=== PATIENT | female | born 1990 ===

== ENCOUNTER 2017-08-15 20:44 | Emergency (ER) | payer OTHER ==
[~2017-08-15] VITALS: Ht 167.6 cm; Wt 59.0 kg
[2017-08-15 21:33] VITALS: BP 117/76; PULSE 75; RESP 18; TEMP 98.6; O2SAT 99
[2017-08-15 22:00] VITALS: RESP 18; O2SAT 98
[2017-08-15] MEDS ORDERED: MORPHINE SULFATE 2 MG/ML SYRINGE IV PUSH ONE (22:00)
[2017-08-15] MEDS ORDERED: SODIUM CHLORIDE 0.9% FLUSH 10 ML FLUSH IV FLUSH PRN (22:00)
--- NOTE | 2017-08-15 22:00 | PD ---
HPI Chief Complaint: Injury Time Seen by Provider: 21:47 Travel History International Travel<30 days: No Contact w/Intl Traveler<30days: No Traveled to known affect area: No History of Present Illness HPI 27-year-old female here for evaluation of worsening left leg, ankle, and foot pain and swelling after injuring the area on 08/03/17, approximately 12 days ago. The patient reports that she was walking by a barn when a sofie of wind blew a barn door onto her, mainly injuring her left foot, ankle, and leg as well as her left lateral chest. She reports that she was evaluated at [facility] at that time and had x-rays of her left ribs, left tib-fib, and left ankle , and was told that there are no fractures. She reports that the swelling was almost instant, and the pain and swelling has been constant, worsening, throbbing, currently 8 out of 10, worse with movements and palpation. She reports feeling intermittent subjective fevers. No history of IVDU. She has been taking ibuprofen with only mild relief of pain. [facility] Past Medical History Medical History: Denies Significant Hx Diminished Hearing: No Tetanus Vaccination: Unknown Influenza Vaccination: No ?: Unknown LMP: 07/28/17 Past Surgical History Surgical History: No Previous Surgery Social History Alcohol Use: No Tobacco Use: No Substance Use: No Allergies-Medications (Allergen,Severity, Reaction): Coded Allergies: No Known Allergies (Verified Allergy, Unknown, 08/15/17) Reported Meds & Prescriptions Reported Meds & Active Scripts Active No Active Prescriptions or Reported Medications Review of Systems Except as stated in HPI: all other systems reviewed are Neg Physical Exam Narrative GENERAL: Well-developed, well-nourished, awake, alert, no apparent distress. SKIN: Left lateral/distal leg with healing abrasion/scrapes with surrounding warmth and erythema as well as ecchymosis. Area of ecchymosis to left lateral/ inferior chest wall. HEAD: Atraumatic. Normocephalic. EYES: Pupils equal and round. No scleral icterus. No injection or drainage. ENT: Mucous membranes pink and moist. NECK: Trachea midline. No JVD. CARDIOVASCULAR: Regular rate and rhythm. Bilateral dorsalis pedis pulses are brisk and equal. RESPIRATORY: No accessory muscle use. Clear to auscultation. Breath sounds equal bilaterally. GASTROINTESTINAL: Abdomen soft, non-tender, nondistended. MUSCULOSKELETAL: Skin exam as above. Significant edema to left foot, ankle, and leg with diffuse tenderness. No fluctuance or induration. No crepitus. All compartments in the left lower extremity are supple. NEUROLOGICAL: Awake and alert. No obvious cranial nerve deficits. Motor grossly within normal limits. Normal speech. PSYCHIATRIC: Appropriate mood and affect; insight and judgment normal. Data Data Last Documented VS Vital Signs Date Time Temp Pulse Resp B/P (MAP) Pulse Ox O2 Delivery O2 Flow Rate FiO2 08/15/17 22:00 18 98 Room Air 08/15/17 21:33 98.6 75 117/76 (90) Orders Orders Beta Hcg (Quant/Titer) (08/15/17 21:54) Complete Blood Count With Diff (08/15/17 21:54) Comprehensive Metabolic Panel (08/15/17 21:54) Prothrombin Time / Inr (Pt) (08/15/17 21:54) Act Partial Throm Time (Ptt) (08/15/17 21:54) Iv Access Insert/Monitor (08/15/17 21:54) Ecg Monitoring (08/15/17 21:54) Oximetry (08/15/17 21:54) Sodium Chloride 0.9% Flush (Ns Flush) (08/15/17 22:00) Blood Culture (08/15/17 21:54) Westergren Sedimentation Rate (08/15/17 21:54) C-Reactive Protein (Crp) (08/15/17 21:54) Tibia/Fibula (Ap/Lat) (08/15/17 ) Foot, Complete (Rpz1its) (08/15/17 ) Morphine Inj (Morphine Inj) (08/15/17 22:00) Mri Lower Leg W/Wo Contrast (08/15/17 ) Labs Laboratory Tests Test 08/15/17 22:00 White Blood Count 8.6 TH/MM3 Red Blood Count 4.13 MIL/MM3 Hemoglobin 12.4 GM/DL Hematocrit 37.5 % Mean Corpuscular Volume 90.9 FL Mean Corpuscular Hemoglobin 30.1 PG Mean Corpuscular Hemoglobin Concent 33.1 % Red Cell Distribution Width 13.2 % Platelet Count 222 TH/MM3 Mean Platelet Volume 8.3 FL Neutrophils (%) (Auto) 66.8 % Lymphocytes (%) (Auto) 21.5 % Monocytes (%) (Auto) 8.5 % Eosinophils (%) (Auto) 2.5 % Basophils (%) (Auto) 0.7 % Neutrophils # (Auto) 5.8 TH/MM3 Lymphocytes # (Auto) 1.8 TH/MM3 Monocytes # (Auto) 0.7 TH/MM3 Eosinophils # (Auto) 0.2 TH/MM3 Basophils # (Auto) 0.1 TH/MM3 CBC Comment DIFF FINAL Differential Comment Erythrocyte Sedimentation Rate 14 mm/hr Prothrombin Time 9.8 SEC Prothromb Time International Ratio 1.0 RATIO Activated Partial Thromboplast Time 26.1 SEC Blood Urea Nitrogen 8 MG/DL Creatinine 0.52 MG/DL Random Glucose 87 MG/DL Total Protein 7.9 GM/DL Albumin 3.7 GM/DL Calcium Level 9.0 MG/DL Alkaline Phosphatase 75 U/L Aspartate Amino Transf (AST/SGOT) 16 U/L Alanine Aminotransferase (ALT/SGPT) 17 U/L Total Bilirubin 0.4 MG/DL Sodium Level 139 MEQ/L Potassium Level 3.9 MEQ/L Chloride Level 107 MEQ/L Carbon Dioxide Level 27.6 MEQ/L Anion Gap 4 MEQ/L Estimat Glomerular Filtration Rate 143 ML/MIN C-Reactive Protein 1.70 MG/DL Human Chorionic Gonadotropin, Quant LESS THAN 1 MIU/ML MDM Medical Decision Making Medical Screen Exam Complete: Yes Emergency Medical Condition: Yes Differential Diagnosis Left foot/ankle/tib-fib fracture, osteomyelitis, cellulitis, severe left ankle sprain/tendon injury Narrative Course Initial vital signs show heart rate 75, blood pressure 117/76, pulse ox 99% on room air, oral temperature 98.6F. CBC: WBC 8.6, hemoglobin 12.4, hematocrit 37.5, platelets 222. CMP is unremarkable. Beta-hCG is negative. ESR is 14. CRP is slightly elevated at 1.7. At approximately 11:00 PM at the end of my shift the patient was signed out to Dr. Rivera to follow-up with imaging results and disposition. Scripts No Active Prescriptions or Reported Meds Iker Bishop MD Aug 15, 2017 22:00
[2017-08-15 22:24] LABS: AUTOMATED NEUTROPHIL # 5.8 TH/MM3 (1.8-7.7); BASOPHIL # 0.1 TH/MM3 (0-0.2); BASOPHIL % 0.7 % (0.0-2.0); EOSINOPHIL # 0.2 TH/MM3 (0-0.4); EOSINOPHIL % 2.5 % (0.0-4.0); HEMATOCRIT 37.5 % (35.0-46.0); HEMOGLOBIN 12.4 GM/DL (11.6-15.3); LYMPH % 21.5 % (9.0-44.0); LYMPHOCYTE # 1.8 TH/MM3 (1.0-4.8); MEAN CELL VOLUME 90.9 FL (80.0-100.0); MEAN CORPUSCULAR HEMOGLOBIN 30.1 PG (27.0-34.0); MEAN CORPUSCULAR HGB CONC 33.1 % (32.0-36.0); MEAN PLATELET VOLUME 8.3 FL (7.0-11.0); MONO % 8.5 % (0.0-8.0); MONOCYTE # 0.7 TH/MM3 (0-0.9); NEUT % 66.8 % (16.0-70.0); PLATELET COUNT 222 TH/MM3 (150-450); RED BLOOD COUNT 4.13 MIL/MM3 (4.00-5.30); RED CELL DISTRIBUTION WIDTH 13.2 % (11.6-17.2); WHITE BLOOD COUNT 8.6 TH/MM3 (4.0-11.0)
[2017-08-15 22:32] LABS: CHLORIDE 107 MEQ/L (98-107); SODIUM (NA) 139 MEQ/L (136-145)
[2017-08-15 22:34] LABS: BICARBONATE 27.6 MEQ/L (21.0-32.0); BLOOD UREA NITROGEN 8 MG/DL (7-18); GLUCOSE,RANDOM 87 MG/DL (74-106)
[2017-08-15 22:36] LABS: ALBUMIN 3.7 GM/DL (3.4-5.0)
[2017-08-15 22:38] LABS: ALT (GPT) 17 U/L (10-53)
[2017-08-15 22:39] LABS: AST (GOT) 16 U/L (15-37); CREATININE 0.52 MG/DL (0.50-1.00); GLOMERULAR FILTRATION RATE 143 ML/MIN (>89); PROTHROMBIN TIME - PATIENT 9.8 SEC (9.8-11.6)
[2017-08-15 22:40] LABS: TOTAL BILIRUBIN ADULT 0.4 MG/DL (0.2-1.0); TOTAL PROTEIN 7.9 GM/DL (6.4-8.2)
[2017-08-15 22:42] LABS: ALKALINE PHOSPHATASE 75 U/L (45-117)
--- NOTE | 2017-08-15 23:24 | RADRPT ---
EXAM DATE/TIME: 08/15/2017 23:04 [facility] COMPARISON: No previous studies available for comparison. INDICATIONS : Left lower leg pain, swelling after a door fell on patient's leg 2 weeks ago MEDICAL HISTORY : None. SURGICAL HISTORY : None. ENCOUNTER: Initial ACUITY: 2 weeks PAIN SCORE: 10/10 LOCATION: Left distal lower leg FINDINGS: Two view examination of the left tibia demonstrates no evidence of fracture or dislocation. Bony min eralization is normal. The soft tissue structures are intact. CONCLUSION: Unremarkable examination of the left tibia. Raza Ramirez Jr., MD on August 15, 2017 at 23:22 Board Certified Radiologist. This report was verified electronically.
--- NOTE | 2017-08-15 23:24 | RADRPT ---
EXAM DATE/TIME: 08/15/2017 23:04 [facility] COMPARISON: No previous studies available for comparison. INDICATIONS : Left foot pain for 2 weeks after a door fell on patient's leg MEDICAL HISTORY : None. SURGICAL HISTORY : None. ENCOUNTER: Initial ACUITY: 2 weeks PAIN SCORE: 10/10 LOCATION: Left dorsal surface of foot FINDINGS: Three view examination of the left foot demonstrates no soft tissue swelling, dislocation, or fractur e. The tarsal bones appear intact. The interphalangeal and metatarsophalangeal joints are intact. The calcaneus is intact. Bony mineralization is normal. CONCLUSION: Unremarkable examination of the left foot. Raza Ramirez Jr., MD on August 15, 2017 at 23:23 Board Certified Radiologist. This report was verified electronically.
[2017-08-16] MEDS ORDERED: ONDANSETRON HCL 4 MG/2 ML VIAL IV PUSH ONE
[2017-08-16] MEDS ORDERED: MORPHINE SULFATE 2 MG/ML SYRINGE IV PUSH ONE
[2017-08-16 00:03] VITALS: BP 116/68; PULSE 85; RESP 18; O2SAT 98
[2017-08-16] MEDS ORDERED: GADODIAMIDE PF 287 MG/ML 5 ML VIAL (for RAD MRI) IVCONTRAST ONE (01:39)
[2017-08-16 02:22] VITALS: BP 123/78; PULSE 88; RESP 18; O2SAT 99
[2017-08-16] MEDS ORDERED: MORPHINE SULFATE 4 MG/ML INJ IV PUSH ONE (02:30)
--- NOTE | 2017-08-16 02:36 | PD ---
Physical Exam Time Seen by Provider: 02:23 Narrative Left this patient with me, he ordered an MRI of the left leg and foot and wanted me to make a disposition after reviewing the MRI. The patient's pain is an 8/10. Data Data Last Documented VS Vital Signs Date Time Temp Pulse Resp B/P (MAP) Pulse Ox O2 Delivery O2 Flow Rate FiO2 08/16/17 02:22 88 18 123/78 (93) 99 Room Air 08/15/17 21:33 98.6 Orders Orders Beta Hcg (Quant/Titer) (08/15/17 21:54) Complete Blood Count With Diff (08/15/17 21:54) Comprehensive Metabolic Panel (08/15/17 21:54) Prothrombin Time / Inr (Pt) (08/15/17 21:54) Act Partial Throm Time (Ptt) (08/15/17 21:54) Iv Access Insert/Monitor (08/15/17 21:54) Ecg Monitoring (08/15/17 21:54) Oximetry (08/15/17 21:54) Sodium Chloride 0.9% Flush (Ns Flush) (08/15/17 22:00) Blood Culture (08/15/17 21:54) Westergren Sedimentation Rate (08/15/17 21:54) C-Reactive Protein (Crp) (08/15/17 21:54) Tibia/Fibula (Ap/Lat) (08/15/17 ) Foot, Complete (Xct2yta) (08/15/17 ) Morphine Inj (Morphine Inj) (08/15/17 22:00) Morphine Inj (Morphine Inj) (08/16/17 00:00) Ondansetron Inj (Zofran Inj) (08/16/17 00:00) Mri Lower Leg W/Wo Contrast (08/16/17 ) Mri Foot W&W/O Contrast (08/16/17 ) Gadodiamide Pf Inj (Omniscan Pf Inj) (08/16/17 01:39) Morphine Inj (Morphine Inj) (08/16/17 02:30) Clindamycin 900 Mg/Ns Premix (Cleocin 90 (08/16/17 02:45) Sulfamet-Trimeth Ds 800-160 Mg (Bactrim (08/16/17 02:45) Labs Laboratory Tests Test 08/15/17 22:00 White Blood Count 8.6 TH/MM3 Red Blood Count 4.13 MIL/MM3 Hemoglobin 12.4 GM/DL Hematocrit 37.5 % Mean Corpuscular Volume 90.9 FL Mean Corpuscular Hemoglobin 30.1 PG Mean Corpuscular Hemoglobin Concent 33.1 % Red Cell Distribution Width 13.2 % Platelet Count 222 TH/MM3 Mean Platelet Volume 8.3 FL Neutrophils (%) (Auto) 66.8 % Lymphocytes (%) (Auto) 21.5 % Monocytes (%) (Auto) 8.5 % Eosinophils (%) (Auto) 2.5 % Basophils (%) (Auto) 0.7 % Neutrophils # (Auto) 5.8 TH/MM3 Lymphocytes # (Auto) 1.8 TH/MM3 Monocytes # (Auto) 0.7 TH/MM3 Eosinophils # (Auto) 0.2 TH/MM3 Basophils # (Auto) 0.1 TH/MM3 CBC Comment DIFF FINAL Differential Comment Erythrocyte Sedimentation Rate 14 mm/hr Prothrombin Time 9.8 SEC Prothromb Time International Ratio 1.0 RATIO Activated Partial Thromboplast Time 26.1 SEC Blood Urea Nitrogen 8 MG/DL Creatinine 0.52 MG/DL Random Glucose 87 MG/DL Total Protein 7.9 GM/DL Albumin 3.7 GM/DL Calcium Level 9.0 MG/DL Alkaline Phosphatase 75 U/L Aspartate Amino Transf (AST/SGOT) 16 U/L Alanine Aminotransferase (ALT/SGPT) 17 U/L Total Bilirubin 0.4 MG/DL Sodium Level 139 MEQ/L Potassium Level 3.9 MEQ/L Chloride Level 107 MEQ/L Carbon Dioxide Level 27.6 MEQ/L Anion Gap 4 MEQ/L Estimat Glomerular Filtration Rate 143 ML/MIN C-Reactive Protein 1.70 MG/DL Human Chorionic Gonadotropin, Quant LESS THAN 1 MIU/ML [facility] Medical Record Reviewed: Yes Supervised Visit with SHERMAN: Yes Interpretation(s) The MRI of the left leg and foot is negative for abscess. The left foot plain films are unremarkable. The tibia/fibula on the left x-rays are unremarkable. The coagulation profile is normal. The sedimentation rate is normal. The CBC is normal. The complete metabolic profile is normal except for the anion gap of 4. The beta-hCG is less than 1 and the cecum reactive protein is slightly high at 1.7. Differential Diagnosis Left ankle sprain, cellulitis left foot/leg, abscess left foot/leg Narrative Course The patient appears to have a cellulitis of the left foot/leg. She has missed approximately 5 days of work and she cannot work anymore because of the pain. It is clearly getting worse both with pain and swelling. She came into the emergency department because of this reason. The patient will benefit from aggressive IV antibiotics and elevation. She has not done a good job of elevating her leg at home. The patient states she has a throbbing, sharp pain of 8/10. The patient will also benefit from pain control with IV medications. I discussed the patient with pharmacy and they do not have the Dalvance at night. We do not have the personnel that give approval for this medication available at night. Nevertheless, the patient will be given IV clindamycin and p.o. clindamycin prescription for home as well as p.o. Bactrim DS here and p.o. Bactrim DS prescription for at home Physician Communication Physician Communication I discussed the patient with Niranjan in the pharmacy and Dr. Espana. Dr. Espana felt that an outpatient trial was warranted before admission. Diagnosis Primary Impression: Cellulitis of left leg Additional Impression: Cellulitis of left foot Additional Instruction: As we discussed, if you get worse please return to the emergency department for consideration for admission. Elevate the left leg/foot above your heart. We will give you a work excuse stating no work until cleared by your primary care physician. Med/Other Pt SpecificInfo: Prescription(s) given Scripts Oxycodone-Acetaminophen (Percocet) 5-325 mg Tab 1 TAB PO Q4H Y for PAIN, #20 TAB 0 Refills Prov: Tim Rivera MD 08/16/17 Sulfamethoxazole-Trimethoprim (Bactrim DS) 800-160 Mg Tab 1 TAB PO BID for Infection, #20 TAB 0 Refills Prov: Tim Rivera MD 08/16/17 Clindamycin (Clindamycin) 300 Mg Cap 300 MG PO Q6H for Infection, #30 CAP 0 Refills Prov: Tim Rivera MD 08/16/17 Disposition: 01 DISCHARGE HOME Condition: Stable Tim Rivera MD Aug 16, 2017 02:36
[2017-08-16] MEDS ORDERED: BACT800T5 PO (02:42)
[2017-08-16] MEDS ORDERED: CLIN300C5 PO (02:42)
[2017-08-16] MEDS ORDERED: PERC5TAB12 PO (02:44)
[2017-08-16] MEDS ORDERED: SULFAMETHOXAZOLE-TRIMETHOPRIM DS 800-160 MG TAB PO ONE (02:45)
[2017-08-16] MEDS ORDERED: CLINDAMYCIN 900 MG/NS PREMIX 50 ML IV ONE (02:45)
[2017-08-16 04:23] VITALS: BP 114/62; PULSE 78; RESP 18; O2SAT 98
--- NOTE | 2017-08-16 08:53 | RADRPT ---
EXAM DATE/TIME: 08/16/2017 00:29 [facility] COMPARISON: No previous studies available for comparison. INDICATIONS : Door fell on leg 2 weeks ago. Redness and bruising on distal lower left leg. CONTRAST: 12 cc Omniscan (gadodiamide) IV MEDICAL HISTORY : None. SURGICAL HISTORY : None. ENCOUNTER: Initial ACUITY: 2 weeks PAIN SCORE: 3/10 LOCATION: Left lower leg TECHNIQUE: Multiplanar multisequence MRI examination of the lower leg was performed with and without contrast. FINDINGS: There is generalized soft tissue swelling distal calf without evidence for the bone contusion or deep space abscess. Findings are most consistent with cellulitis. CONCLUSION: Probable cellulitis, no deep space abscess. Wilmar Hummel MD FACR on August 16, 2017 at 8:49 Board Certified Radiologist. This report was verified electronically.
--- NOTE | 2017-08-16 08:55 | RADRPT ---
EXAM DATE/TIME: 08/16/2017 00:29 [facility] COMPARISON: No previous studies available for comparison. INDICATIONS : Door fell on patient 2 weeks ago. Patient has bruising and redness on per proximal to lower mid f oot. CONTRAST: 12 cc Omniscan (gadodiamide) IV MEDICAL HISTORY : None. SURGICAL HISTORY : None. ENCOUNTER: Initial ACUITY: 2 weeks PAIN SCORE: 4/10 LOCATION: Left lower leg TECHNIQUE: Multiplanar, multisequence MRI examination was performed without contrast and after the intravenous a dministration of gadolinium. FINDINGS: Exam is limited because the area covered. Findings are most consistent with superficial cellulitis. There is no fracture or deep space abscess. CONCLUSION: Superficial cellulitis without abscess. Wilmar Hummel MD FACR on August 16, 2017 at 8:51 Board Certified Radiologist. This report was verified electronically.
== END 2017-08-16 04:25 | disposition home or self-care (01) ==
LOC: PHED 20:44 → PHEFT 08-16 04:25
DX: L03.116 Cellulitis of left lower limb (principal)
CPT/HCPCS: 73590; 73630; 73720; 80053; 84702; 85025; 85610; 85652; 85730; 86140; 87040; 96365; 96375; 96376; 99285; A9579; J2270; J2405